=== PATIENT | female | born 1985 | race Caucasian/White ===

== ENCOUNTER 2019-06-30 04:59 | Emergency (ER) | payer OTHER ==
[~2019-06-30] VITALS: Ht 167.6 cm; Wt 131.5 kg
[2019-06-30 05:01] VITALS: Ht 167.6 cm; Wt 131.5 kg
[2019-06-30 07:10] LABS: BASOPHIL % 0.5 % (0-2); PLATELET COUNT 399 x10^3mcL (130-400); RED CELL DISTRIBUTION WIDTH 14.2 % (11.5-14.5)
[2019-06-30 10:00] VITALS: BP 187/104
== END 2019-06-30 10:00 | disposition home or self-care (01) ==
LOC: ED 04:59
DX: N93.8 Other specified abnormal uterine and vaginal bleeding (principal); E11.9 Type 2 diabetes mellitus without complications; I11.0 Hypertensive heart disease with heart failure; E03.9 Hypothyroidism, unspecified; Z98.890 Other specified postprocedural states
CPT/HCPCS: 36415; J1885

== ENCOUNTER 2019-08-12 15:17 | Emergency (ER) | payer OTHER ==
[~2019-08-12] VITALS: Ht 167.6 cm; Wt 132.0 kg
[2019-08-12 15:33] VITALS: BP 207/107; Ht 167.6 cm; Wt 132.0 kg
[2019-08-12 16:36] LABS: BASOPHIL % 0.5 % (0-2); PLATELET COUNT 403 x10^3mcL (130-400); RED CELL DISTRIBUTION WIDTH 13.8 % (11.5-14.5)
== END 2019-08-12 17:30 | disposition left against medical advice (07) ==
LOC: ED 15:17
PROVIDERS: Emergency Medicine
DX: N39.3 Stress incontinence (female) (male) (principal); R10.30 Lower abdominal pain, unspecified
CPT/HCPCS: 36415; 82962